=== PATIENT | male | born 1955 | race Caucasian/White ===

== ENCOUNTER 2019-03-14 10:02 | Emergency (ER) | payer SELFPAY ==
[2019-03-14] MEDS ORDERED: FAMOTIDINE 20 MG TABLET PO ONE (10:18)
[2019-03-14] MEDS ORDERED: predniSONE 20 MG TABLET (UD) PO ONE (10:18)
[2019-03-14] MEDS ORDERED: FAMOTIDINE 20 MG TABLET ONE (10:18)
--- NOTE | 2019-03-14 10:18 | PDOC ---
History of Present Illness - General Chief Complaint: Rash Stated Complaint: RASH Time Seen by Provider: 03/14/19 10:08 History Source: Patient (Patient walked in reporting that 2 days ago after taking Viaagra ( which he took in the past) while [place] with a lady and rubbing his chest on her, developed a rash on the pectoral area (which was in close contact with his partener) and swelling of the penis .) - History of Present Illness Is this a multiple visit Asthma Patient?: No Severity: mild, moderate Modifying Factors: improves with: medication (Patient tried OTC Benadryl without success) Past History - Travel Traveled outside of the country in the last 30 days: No Close contact w/someone who was outside of country & ill: No - Past Medical History Allergies/Adverse Reactions: Allergies Allergy/AdvReac Type Severity Reaction Status Date / Time No Known Allergies Allergy Verified 03/14/19 10:03 Home Medications: Ambulatory Orders predniSONE [Deltasone -] 10 mg PO ASDIR #30 tab 03/14/19 Review of Systems - Review of Systems Able to Perform ROS?: Yes Is the patient limited [place] proficient: Yes Constitutional: No: Symptoms Reported, See HPI, Chills, Diaphoresis, Fever, Loss of Appetite, Malaise, Night Sweats, Weakness, Weight Stable, Unintentional Wgt. Loss, Unexplained wgt Loss, Other HEENTM: No: Symptoms Reported, See HPI, Eye Pain, Blurred Vision, Tearing, Recent change in vision, Double Vision, Cataracts, Ear Pain, Ocular Prothesis, Ear Discharge, Nose Pain, Nose Congestion, Tinnitus, Nose Bleeding, Hearing Loss , Throat Pain, Throat Swelling, Mouth Pain, Dental Problems, Difficulty Swallowing, Mouth Swelling, Other Respiratory: No: Symptoms reported, See HPI, Cough, Orthopnea, Shortness of Breath, SOB with Exertion, SOB at Rest, Stridor, Wheezing, Productive cough, Hemoptysis, Other Cardiac (ROS): No: Symptoms Reported, See HPI, Chest Pain, Edema, Irregular Heart Rate, Lightheadedness, Palpitations, Syncope, Chest Tightness, Other ABD/GI: No: Symptoms Reported, See HPI, Abdominal Distended, Abd. Pain w/ defecation, Blood Streaked Bowels, Constipated, Diarrhea, Difficulty Swallowing , Nausea, Poor Appetite, Poor Fluid Intake, Rectal Bleeding, Vomiting, Indigestion, Abdominal cramping, Tarry Stools, Other : Yes: Other (Mild to moderate swelling of the penis) Integumentary: Yes: Symptoms Reported, See HPI, Rash (Hyperemic rash, anterior chest and slightly upper abdomen) Neurological: No: Symptoms reported, See HPI, Headache, Numbness, Paresthesia, Pre-Existing Deficit, Seizure, Tingling, Tremors, Weakness, Unsteady Gait, Ataxia, Dizziness, Other Psychiatric: No: Anxiety, Depression, Frequent Crying, Stressors, Sleep Pattern Change, Emotional Problems, Mood Swings, Change in Appetite, Other Endocrine: No: Symptoms Reported, See HPI, Excessive Sweating, Flushing, Intolerance to Cold, Intolerance to Heat, Increased Hunger, Increased Thirst, Increased Urine, Unexplained Weight Gain, Unexplained Weight Loss, Change in Weight, Other All Other Systems: Reviewed and Negative *Physical Exam - Physical Exam General Appearance: Yes: Nourished, Appropriately Dressed. No: Apparent Distress HEENT: positive: TANVI, Normal Voice Respiratory/Chest: positive: Lungs Clear, Normal Breath Sounds Male Genitalia: positive: other (mild swelling of penis) Integumentary: positive: Normal Color, Dry, Other (rash over chest and upper abdomen , hyperemic, strictly localized to the contact area with his partner while having sex) Medical Decision Making - Medical Decision Making Based on history and physical exam , dg and treatment for contact dermatitis 03/14/19 11:25 Discharge - Discharge Information Problems reviewed: Yes Clinical Impression/Diagnosis: Contact dermatitis Qualifiers: Contact dermatitis type: unspecified Contact dermatitis trigger: unspecified trigger Qualified Code(s): L25.9 - Unspecified contact dermatitis, unspecified cause Condition: Stable Disposition: HOME - Admission No - Additional Discharge Information Prescriptions: predniSONE [Deltasone -] 10 mg PO ASDIR #30 tab Prescription Drug Monitoring Program (I-STOP) results: I-STOP reviewed and no issues identified - Follow up/Referral - Patient Discharge Instructions Patient Printed Discharge Instructions: DI for Contact Dermatitis - Post Discharge Activity
[2019-03-14] MEDS ORDERED: diphenhydrAMINE HCL 25 MG CAPSULE (FP) PO ONE ×2 (10:19→10:20)
[2019-03-14] MEDS ORDERED: predniSONE 20 MG TABLET (UD) ONE (10:23)
[2019-03-14 10:30] VITALS: BP 135/90; PULSE 79; TEMP 99; BMI 23.7
[2019-03-14] MEDS ORDERED: PRESCRIPTION PAD 1 EACH EACH NR ONE (10:46)
== END 2019-03-14 11:17 | disposition home or self-care (01) ==
LOC: FER 10:02
DX: L25.9 Unspecified contact dermatitis, unspecified cause (principal)
CPT/HCPCS: 99281-25